=== PATIENT | male | born 1965 | race Caucasian/White ===

== ENCOUNTER 2019-05-03 12:41 | Emergency (ER) | payer OTHER, SELFPAY ==
[2019-05-03 12:44] VITALS: BP 153/106; PULSE 64; RESP 14; TEMP 36.2; O2SAT 96
--- NOTE | 2019-05-03 13:58 | ED.GENADUL_ITS ---
Discharge Plan Disposition Patient Disposition: HOME Condition: Fair Discharge Details Chief Complaint: Laceration Clinical Impression: Laceration of left leg Primary Care Provider: YAZMIN CHARLES ED Provider: Tiff Cook Home Meds and New Rx's Prescriptions: No Action No Known Home Meds RF: 0 Discharge Instructions Instructions: Laceration (ED) Additional Instructions: Keep wound clean, dry, covered. Please try to elevate and continue with Ranjit wrap to help with swelling. Keep current dressing on for the next 24 hours, after that time please cover the Band-Aid. You may wash with running water but do not soak or submerge as this will increase your risk of infection. Tylenol and/or ibuprofen as needed for discomfort. Monitor wound for signs of infection including redness, warmth, drainage, increased pain, fever/chills. If these or other new/worsening symptoms arise please seek care urgently once again. Please return in 12 days for suture removal Referrals: YAZMIN CHARLES [Primary Care Provider] - Discharge Data Discharge Date/Time-TO BE ENTERED AT DEPARTURE: 05/03/19 15:28 Medical Decision Making Patient is a 54-year-old male presenting today with chief complaint of laceration to the right medial ankle. He reports a prior to arrival he was cleaning his shop on a piece of metal fell from height striking the medial aspect of the ankle. Is been ambulating well. Reports he is up-to-date on tetanus. Denies other injuries from the incident. Denies any numbness or tingling, sensation is intact on exam. Good range of motion of the ankle with no deficit noted. Concern for bony involvement at this time. Patient will need copious irrigation and closure of the wound. Patient I discussed risk/benefits of suture closure as well as expected procedural steps. Patient voiced understanding and wishes to proceed. Please see procedure note. Patient was anesthetized with 1% lidocaine plain which worked quite well for him. Wound was copiously irrigated and cleansed with chlorhexidine. Explored to base in a bloodless field no foreign body or debris noted. Patient tolerated this well, bandage applied by myself. Ranjit wrap applied by nursing staff. Patient I discussed wound care in depth. Encourage elevation. We discussed signs and symptoms of infection when to seek care urgently once again. We discussed activities he should avoid. We discussed how to keep the wound clean. He was advised to return in 12 days for suture removal. Patient reports that he will likely take these at himself. I did advise that he have this reevaluated to ensure that wound has healed appropriately. All of his questions and concerns were addressed and he is in agreement with this plan. HPI General Mode of arrival: ambulatory . Date/Time Provider Initiated Documentation: 05/03/19 13:03 . Limitations to Documentation: no limitations . Information obtained by: patient, family (Accompanied by ) and RN notes reviewed . History of Present Illness 54 year old M presents to the emergency department with the chief complaint of Right ankle laceration, described as mild, with intensity rated at 2. Quality is described as aching, and is localized to the right and upper extremity. Patient reports no radiation. Patient started experiencing this minute(s) and it has been constant. No relieving factors improve symptom(s), No exacerbating factors reported . Patient notes no other symptoms.. Patient did receive the following tr eatments prior to arrival, none Related Data Home Medications Medication Instructions Recorded Confirmed Unknown [No Known Home Meds] 05/03/19 05/03/19 Allergies Allergy/AdvReac Type Severity Reaction Status Date / Time No Known Allergies Allergy Unverified 05/03/19 12:47 General Stated Complaint: Laceration KIANA: 3 Review of Systems Constitutional Reports as per HPI, Denies chills and Denies fever(s) Musculoskeletal Reports as per HPI Integumentary/Breasts Reports as per HPI Neurologic Reports as per HPI, Denies sensory deficit and Denies paresthesias PFSH Surgical History Colonoscopy - MAC (08/20/17) Family History Mother Colon cancer Father Colon cancer Social History Smoking/Tobacco Use Status: Former Tobacco Use Drug use: Never Do you feel safe at home: Yes Do you feel safe in your relationship?: Yes Exam Const General: cooperative, healthy appearing, comfortable, no acute distress and well developed Nutritional Appearance: average body habitus and well nourished Orientation: alert and awake Resp Effort & Inspection: normal respiratory effort, able to speak in complete sentences and no respiratory distress Cardio Rate: regular rate Rhythm: regular rhythm Skin Trauma: laceration (8 cm irregularly-shaped laceration medial right ankle) and other (Deep structures intact, fascia intact, visible) Neuro General: alert and awake Cognition: normal cognition Speech: speech normal Gait: normal gait Sensory Exam: no sensory deficits noted Extrem Right lower extremity: full ROM, normal capillary refill, no joint enlargement, lower leg Details: normal to inspection; no erythema, no tenderness, no localized swelling, no palpable cords, no deformity and no unusual warmth and ankle Details: tenderness (Around the area of laceration) Location: of the medial malleolus, no edema, normal ROM and laceration; inspection normal (Laceration as above), no swelling, no unusual warmth, no crepitus, no penetrating wound and achilles tendon exam normal; abnormal to inspection (Laceration as above) Psych Appearance: grossly normal and well kempt Mental Status: mental status grossly normal Speech and Movement: speech and movement normal Course Vital Signs Temperature 36.2 C L 05/03/19 12:44 Pulse 64 05/03/19 12:44 Respiratory Rate 14 05/03/19 12:44 Blood Pressure 153/106 H 05/03/19 12:44 Pulse Oximetry 96 05/03/19 12:44 Temperature 36.2 C L 05/03/19 12:44 Temperature Source Temporal Artery Scan 05/03/19 12:44 Pulse 64 05/03/19 12:44 Respiratory Rate 14 05/03/19 12:44 Respiratory Effort Non-Labored 05/03/19 12:46 Blood Pressure 153/106 H 05/03/19 12:44 Blood Pressure Position Sitting 05/03/19 12:44 Pulse Oximetry 96 05/03/19 12:44 Oxygen Delivery Method Room Air 05/03/19 12:44 Oxygen Flow Rate 0 05/03/19 12:44 Pain Level 1 05/03/19 12:52 Procedures Laceration Laceration 1: Site: lower extremity Side (If applicable): right Size (cm): 8 Description: irregular Depth: simple, single layer Local Anesthetic: Lidocaine 1% Amount of anesthesia used (mL): 9 Pre-repair: wound explored, irrigated extensively, deep structures intact, extensive debridement and wound margins revised Skin layer closed with: nylon Size (cm): 5-0 Number of sutures: 10 Technique: simple, interrupted and horizontal mattress Subcutaneous layer closed with: chromic gut Size: 4-0 Number of sutures: 3
== END 2019-05-03 15:28 | disposition home or self-care (01) ==
PROVIDERS: Emergency Provider Physician Assistant; PCP Family Medicine
DX: S91.011A Laceration without foreign body, right ankle, initial encounter (principal); W45.8XXA Other foreign body or object entering through skin, initial encounter
CPT/HCPCS: 12034

== ENCOUNTER 2020-09-03 03:20 | Outpatient (CLI) | payer OTHER, SELFPAY ==
[2020-09-07 21:28] LABS: Patient Race White; SARS-CoV-2 RNA Undetected (Undetected); SARS-CoV-2 Specimen Source Nasal
== END 2020-09-03 03:40 ==
PROVIDERS: PCP Family Medicine; Visit Provider Nurse Practitioner Family
DX: Z11.59 Encounter for screening for other viral diseases (principal)
CPT/HCPCS: U0003